=== PATIENT | female | born 1940 | race Caucasian/White ===

== ENCOUNTER → 2023-03-22 13:41 | Outpatient (REF) | payer MEDICARE, SELFPAY | LOC: HWRAD 13:41 | PROVIDERS: ATTENDING PHYSICIAN Nurse Practitioner; FAMILY PHYSICIAN Family Medicine | DX: N13.39 Other hydronephrosis (principal) | CPT/HCPCS: 74178; Q9967 ==

== ENCOUNTER 2023-04-05 06:19 | Day surgery (SDC) | payer MEDICARE, SELFPAY ==
--- NOTE | 2023-04-03 17:28 | PTCARENOTE ---
made aware of hgb 9.9 collected on 02/04/23; no actions requested.
[2023-04-05] VITALS (11 sets, daily range): BP systolic 76–138; BP diastolic 44–66; BMI 26.0
[2023-04-05] MEDS: NORMOSOL-R 1000 IV (09:22)
[2023-04-05 11:38] LABS: Glucose - Point of Care 105 mg/dl (70-99)
[2023-04-05] MEDS: ZOFRAN 4 MG IV (11:44)
[2023-04-05] MEDS: Pyridium 200 MG PO (12:10)
== END 2023-04-05 13:17 | disposition home or self-care (01) ==
LOC: SDS 06:19
PROVIDERS: ATTENDING PHYSICIAN Specialist
DX: N20.2 Calculus of kidney with calculus of ureter (principal); Z87.440 Personal history of urinary (tract) infections
CPT/HCPCS: 52351; 76000; 82962; C1894; J1580

== ENCOUNTER → 2023-08-29 08:30 | Outpatient (REF) | payer MEDICARE, SELFPAY | LOC: RAD 08:30 | PROVIDERS: ATTENDING PHYSICIAN Internal Medicine; FAMILY PHYSICIAN Physician Assistant Medical | DX: R63.4 Abnormal weight loss (principal); K52.9 Noninfective gastroenteritis and colitis, unspecified | CPT/HCPCS: 74019 ==

== ENCOUNTER → 2023-11-15 12:27 | Outpatient (REF) | payer MEDICARE, SELFPAY | LOC: RAD 12:27 | PROVIDERS: ATTENDING PHYSICIAN Physician Assistant Medical | DX: M79.89 Other specified soft tissue disorders (principal) | CPT/HCPCS: 73610; 73630 ==

== ENCOUNTER → 2023-12-06 07:37 | Outpatient (REF) | payer MEDICARE, SELFPAY | LOC: WDC 07:37 | PROVIDERS: ATTENDING PHYSICIAN Physician Assistant Medical | DX: M85.80 Other specified disorders of bone density and structure, unspecified site (principal); Z12.31 Encounter for screening mammogram for malignant neoplasm of breast | CPT/HCPCS: 77063; 77067; 77080 ==

== ENCOUNTER → 2024-07-01 08:24 | Outpatient (REF) | payer MEDICARE, SELFPAY | LOC: RST 08:24 | PROVIDERS: ATTENDING PHYSICIAN Family Medicine | DX: R13.19 Other dysphagia (principal); M79.671 Pain in right foot; M79.672 Pain in left foot | CPT/HCPCS: 73630; 74230; 92611 ==

== ENCOUNTER → 2024-11-15 09:28 | Outpatient (REF) | payer MEDICARE, SELFPAY | LOC: WDC 09:28 | PROVIDERS: ATTENDING PHYSICIAN Physician Assistant Medical | DX: N64.52 Nipple discharge (principal); N64.59 Other signs and symptoms in breast | CPT/HCPCS: 76642; 77062; 77066 ==